=== PATIENT | male | born 1980 | race Caucasian/White ===

== ENCOUNTER 2019-12-24 16:10 | Outpatient (CLI) | payer OTHER, SELFPAY | END 2019-12-24 16:11 | disposition home or self-care (01) | LOC: SPT 16:10 | PROVIDERS: Visit Provider Orthopaedic Surgery | DX: Z46.89 Encounter for fitting and adjustment of other specified devices (principal); S46.212D Strain of muscle, fascia and tendon of other parts of biceps, left arm, subsequent encounter; X58.XXXD Exposure to other specified factors, subsequent encounter | CPT/HCPCS: 97760; L3761 ==

== ENCOUNTER 2019-12-28 09:09 | Day surgery (SDC) | payer OTHER, SELFPAY ==
[2019-12-25 13:30] VITALS: BMI 47.5
[2019-12-28] VITALS (15 sets, daily range): BP systolic 117–165; BP diastolic 92–110; PULSE 95–108; RESP 12–26; TEMP 36.2–36.6; O2SAT 92–99
--- NOTE | 2019-12-28 | SCC_ITS ---
Procedure Done: Open repair left distal biceps 17.2 seconds of fluoroscopic guidance, for a cumulative dose of 0.62 mGy, was provided to Dr. Irving by the radiology department. C-arm images of the LEFT forearm were saved for the patient's permanent record. [facility]
--- NOTE | 2019-12-28 | XR_ITS ---
WS: [id number] C-ARM RADIOGRAPHS LEFT FOREARM; 3 IMAGES HISTORY: OR PIC COMPARISON: None available. Intraoperative imaging during orthopedic procedure. XR/XR forearm LT 2V 14203 IMPRESSION: Intraoperative imaging during orthopedic procedure.
--- NOTE | 2019-12-28 09:20 | W.PM.OPSUD ---
Surgery/Procedure H&P Update DATE OF PROCEDURE: December 28, 2019 DATE H&P PERFORMED: 12/24/19 PLANNED PROCEDURE: Operation Date: 12/28/19 11:45 Proposed Procedures p left distal biceps tendon repair ([id number])S46.299A(Left) - Tanner Irving MD
[2019-12-28] MEDS: sodium chloride 0.9% 500 ML 999 ML IV (09:33)
--- NOTE | 2019-12-28 09:54 | ANES.PREANE2 ---
Pre-Anesthetic Assessment Pre-Anesthetic Assessment: Height/Weight: Height 1.83 m Weight 158.757 kg Temp Pulse Resp BP Pulse Ox 97.8 F 95 18 159/106 95 12/28/19 09:21 12/28/19 09:21 12/28/19 09:21 12/28/19 09:21 12/28/19 09:21 Preop Diagnosis: Left distal biceps tear Proposed Procedure: Operation Date: 12/28/19 11:45 Proposed Procedures p left distal biceps tendon repair ([id number](Left) - Tanner Irving MD Last intake: Intake Last Liquid Date 12/27/19 Last Liquid Time 23:30 Last Solid Date 12/27/19 Last Solid Time 20:00 Social: Social History: Alcohol (occ) and Tobacco Exam: Pre-Anes Outpt Exam: alert, oriented x 3, clear to auscultation bilaterally and regular rate & rhythm Airway: Submandibular: WNL Cervical ROM: WNL MP: 1 Dentition: Partials and Other (teeth ok) History/ROS: No significant complaints Pulmonary: Pulmonary: None reported CV/HEM: CV/HEM: None reported : : None reported Hepatic: Hepatic: None reported GI: GI: GERD (occ) Metabolic: Metabolic: Morbid obesity Musc/skel: Musc/skel: OA/DJD Neuropsych: Neuropsych: Anxiety and Depression Comments: PTSD Anesthetic Plan: ASA status: 2 Anesthesia: Anesthesia Evaluation, Eval. for regional block, General and Regional (specify below) (Left ISB) Risk of > 500 ml blood loss (7ml/kg in children): Yes, adequate IV access and fluids planned Meds/Allergies Current Medications: Current Medications Generic Name Dose Route Start Last Admin Trade Name Freq PRN Reason Stop Dose Admin Sodium Chloride 500 mls @ 999 mls /hr 12/28/19 09:27 12/28/19 09:33 Sodium Chloride 0.9% IV 999 mls/hr .Q31M PRN Administration HYPOTENSION PFSH Anesthesia PFSH: Social History Smoking and tobacco status: current every day smoker Alcohol intake: current Alcohol intake frequency: holidays/special occasions only Data Anesthesia Cardiac Studies: No Data to Display
--- NOTE | 2019-12-28 10:39 | ANES.PROC ---
Anesthesia Procedures Procedure/Date: 12/28/19 Nerve Block ^: Nerve Block 1: Main Anesthesia: general anesthesia Time Out Performed: Yes Consent: requested by attending/covering physician, risks and benefits reviewed and patient agrees to proceed Nerve block location: interscalene (left) Anesthesia monitors applied: pulse oximetry, EKG, BP cuff and oxygen Nerve block position: semi sitting Anesthetic Used: ropivicaine 0.5% and with decadron (4mg) Amount of anesthesia used (mL): 30 Ultrasound used to: recognize landmarks and visualize and ID interscalene groove Nerve Stimulator Used?: Yes Interscalene/Femoral BLK: 2 stimuplex 22 g needle used for position and inplane approach, visualize local anesthetic spread and no vascular puncture identified Injection: neg aspiration of heme Patient Tolerated Procedure: well and no complications Complications: none
[2019-12-28] MEDS: fentaNYL 50 mcg/mL INJ 2mL 100 MCG IVP (10:43)
[2019-12-28] MEDS: midazolam 1 mg/mL INJ 2 mL 2 MG IVP (10:44)
--- NOTE | 2019-12-28 14:21 | PM.OP ---
Operative Report Date of procedure: December 28, 2019 Pre-op Diagnosis: Left distal biceps tear Post-op diagnosis: same Post-op Findings: Same Procedure Done: Open repair left distal biceps Implants: [employer] Endobutton Pathology: none sent Surgeon: Tanner Irving Anesthesia: General and Nerve Block (Interscalene block) Estimated blood loss (mL): 25 Tourniquet time (min): 39 Findings: Patient had complete disruption of his distal biceps from its insertion on the radial tuberosity Condition: stable Disposition: PACU Procedure: The patient was taken to the operating room and given a []. They were prepped and draped in the supine position with a tourniquet on the involved arm. Timeout was performed. The tourniquet was inflated 250 mmHg. A transverse incision approximately 4 cm long was made in line with the distal flexion crease section was carried through the fascia and a superficial veins retracted. The distal biceps tendon was palpable and exposed. Utilizing a scalpel blade a distal 1 cm very enlarged degenerative tendon was excised. Ultratape suture was passed in a locking Krak?w fashion beginning proximally extending distally out the tendon, around the Endobutton and back through the tendon distal proximal. The knot was secured proximally. Approximately 3 mm were left between the ends of the tendon and the Endobutton. The Endobutton was then passed the tendon through a sizing tube in the tendon measured approximately 8 mm. Blunt dissection was accomplished down to the radial tuberosity. A guidepin was driven from anterior is slightly proximal to distal slightly posterior with the arm in maximal supination. Fluoroscopy was used to verify position of pin. A Endobutton reamer was passed through both cortices and a 8 mm reamer through the anterior cortex. Endobutton sutures were then passed through the eyelet of the guide pin. In the guide pin passed through the dorsal arm. The sutures were used to shuttle the Endobutton which was felt to engage on the far cortex of the radius. Dropper fluoroscopy showed satisfactory position of the button. The tourniquet was deflated at 39 min. Heis provided with bipolar cautery. Deep tissues were closed with 3-0 Vicryl and the skin with skin marcial. Sterile dressings consisting of Xeroflo, 4 x 4's, and Raj wrap were applied. Patient was placed in a hinged elbow brace locked in 60? of flexion.
--- NOTE | 2019-12-28 14:41 | SUR.PHASEI ---
1434 PATIENT TO PACU AT THIS TIME FROM OR. DRESSING INTACT TO LEFT ARM WITH PAM WRAP AND SPLINT. RR EVEN AND UNLABORED. PATIENT AROUSES TO VERBAL STIMULI, DENIES PAIN.
[2019-12-28] MEDS: morphine 4 mg/mL SDV 1 mL 2 MG IVP ×2 (14:52→15:02)
--- NOTE | 2019-12-28 15:21 | SUR.PHASEI ---
1517 PATIENT TO OPS. PAIN IMPROVED. DRESSING AND BRACE IN PLACE TO LEFT ARM. LEFT RADIAL PULSE INTACT.
[2019-12-28] MEDS: oxyCODONE-APAP 10-325 mg Tablet 1 TAB PO (15:39)
== END 2019-12-28 16:11 | disposition home or self-care (01) ==
PROVIDERS: Visit Provider Orthopaedic Surgery
PROC: (CPT 23430; principal; 2019-12-28 11:45)
DX: S46.122A Laceration of muscle, fascia and tendon of long head of biceps, left arm, initial encounter (principal); X58.XXXA Exposure to other specified factors, initial encounter; K21.9 Gastro-esophageal reflux disease without esophagitis; E66.01 Morbid (severe) obesity due to excess calories; Z68.42 Body mass index [BMI] 45.0-49.9, adult; M19.90 Unspecified osteoarthritis, unspecified site; F17.210 Nicotine dependence, cigarettes, uncomplicated
CPT/HCPCS: 24342; 12345; 73090; 76000; 96374; 96375; J0330; J0690; J1100; J1580; J2001; J2250; J2270; J2405; J2704; J2795; J3010; J3490; J7040